=== PATIENT | female | born 1970 | race Caucasian/White ===

== ENCOUNTER → 2025-02-10 10:56 | Outpatient (REF) | payer BC, SELFPAY | LOC: REG 10:56 | PROVIDERS: FAMILY PHYSICIAN Nurse Practitioner Adult Health | DX: M25.50 Pain in unspecified joint (principal); M25.559 Pain in unspecified hip; M25.572 Pain in left ankle and joints of left foot; M25.579 Pain in unspecified ankle and joints of unspecified foot; M54.50 Low back pain, unspecified; M79.673 Pain in unspecified foot; R53.83 Other fatigue | CPT/HCPCS: 72202; 73523; 73610; 73630 ==